=== PATIENT | female | born 1990 | race Caucasian/White ===

== ENCOUNTER 2017-05-19 00:03 | Inpatient (IN) | payer MEDICAID ==
[2017-05-19] MEDS ORDERED: LIDOCAINE HCL 50 ML VIAL PERI PRN (00:11)
[2017-05-19] MEDS ORDERED: OXYTOCIN/DEXTROSE 5%-WATER 30 UNITS/500 ML BAG IV ONE ×2 (00:11→14:32)
[2017-05-19] MEDS ORDERED: RINGER'S SOLUTION,LACTATED 1,000 ML IV ONE (00:11)
[2017-05-19] MEDS ORDERED: ONDANSETRON HCL/PF 2 MG/ML VIAL IV PRN ×2 (00:11→09:43)
[2017-05-19] MEDS ORDERED: DEXTROSE 5%-LACTATED RINGERS 1,000 ML IV PRN (00:11)
[2017-05-19 01:03] LABS: Cocaine Ur Negative (NEGATIVE); Urine Barbiturate Negative (NEGATIVE); Urine Benzodiazepines Negative (NEGATIVE); Urine Opiates Negative (NEGATIVE); Urine PCP Negative (NEGATIVE); Urine THC Negative (NEGATIVE)
[2017-05-19] MEDS: MISOPROSTOL 100 MCG TABLET VG PRN ×2 (02:27→06:31)
--- NOTE | 2017-05-19 09:15 | PN ---
Progess Note - Interim Narrative: 05/19/17 09:14 Patient feeling some of her contractions Vital signs stable. Status post 2 doses of Cytotec. Last dose at 6:30 this morning FHT:150 baseline, reassuring Contractions q 2-3 min Cervix: 3/50/-2, AROM-clear Impression: Intrauterine at 39-4/7 weeks social induction of labor Plan: Continue present plan
[2017-05-19] MEDS ORDERED: BUPIVACAINE HCL/0.9 % NACL/PF 250 ML EP PRN (09:43)
[2017-05-19] MEDS ORDERED: NALOXONE HCL 1 MG/1 ML SYRG IV PRN (09:43)
[2017-05-19] MEDS ORDERED: BUPIVACAINE HCL/PF 30 ML VIAL EP SCH (09:45)
--- NOTE | 2017-05-19 10:19 | OR ---
Anesthesia Procedure Note - Anesthesia Procedure Note Date of Service: 05/19/17 Narrative: Vital Signs - Last Taken Temp 36.9 C 05/19/17 09:56 Pulse 90 05/19/17 09:56 Resp 18 05/19/17 09:56 BP 124/64 05/19/17 09:56 Pulse Ox 100 05/19/17 09:56 05/19/17 10:18 ANESTHESIA PROCEDURE NOTE Date of Procedure: 05/19/2017. Time of procedure: 954. Performed by: Charli Randhawa CRNA Investor Relations Director: None. Preprocedure diagnosis: Active labor. Post procedure diagnosis: Same. Procedure: Insertion of labor epidural. Indications: The patient is a 26 -year-old female in active labor requesting labor epidural for pain management. Findings: See below. Details of the procedure: The patient was placed in a sitting position. DuraPrep as well as Betadine swabs X3 was applied to the patient's back. Patient was then draped in a sterile fashion. Lidocaine 1% was infiltrated to the skin and subcutaneous tissues at the level of the L3-4 interspace. The epidural space was identified using a 18-gauge Tuohy needle with loss-of- resistance technique. Epidural catheter was inserted to a depth of 13 centimeters at skin. Negative test dose was elicited using 3 mL of 1.5% preservative-free lidocaine plus epinephrine 1 200,000. The epidural catheter was then taped and secured in place. A loading dose of 8 mL of 0.25% preservative-free bupivacaine was administered to the epidural catheter after negative aspiration for blood and CSF. EBL: Minimal. Fluids: N/A. Specimen: N/A. Post procedure condition: The patient tolerated the procedure well. No complications were noted. Thank you for this consultation. Charli Randhawa CRNA
[2017-05-19] MEDS ORDERED: PENICILLIN G POTASSIUM 5 MILLIONUNT in DEXTROSE 5 % IN WATER 100 ML IV ONE ×2 (13:19)
[2017-05-19] MEDS ORDERED: SENNOSIDES 8.6 MG TABLET PO PRN (14:32)
[2017-05-19] MEDS ORDERED: BENZOCAINE/MENTHOL 81 SPRAY CAN TP PRN (14:32)
[2017-05-19] MEDS ORDERED: GLYCERIN/WITCH HAZEL LEAF 40 APPL BOX TP PRN (14:32)
[2017-05-19] MEDS ORDERED: oxyCODONE HCL/ACETAMINOPHEN 1 TAB TABLET PO PRN ×2 (14:32)
[2017-05-19] MEDS ORDERED: BISACODYL 10 MG SUPP.RECT RC PRN (14:32)
[2017-05-19] MEDS ORDERED: HYDROCORTISONE 30 APPL TUBE TP PRN (14:32)
--- NOTE | 2017-05-19 14:34 | OR ---
Operative Report - Dictated Report Narrative: Spontaneous vaginal delivery of viable male at 1418 on 05/19/2017 with Apgars 8 and 9, weighing 3843 g in REBECCA position.. Cord clamping delayed approximately 1 minute Placenta delivered complete, intact, with three vessel cord Estimated blood loss: less than 50 ml Lacerations: None
[2017-05-19] MEDS: IBUPROFEN 800 MG TABLET PO PRN (19:54)
[2017-05-19] MEDS: DOCUSATE SODIUM 100 MG CAPSULE PO SCH (20:12)
--- NOTE | 2017-05-20 06:58 | PN ---
Subjective - Date and Time Seen Date: 05/20/17 Time: 06:53 Objective - Vitals Vitals: Last Vital Signs Temp 36.7 C 05/19/17 20:30 Pulse 80 05/19/17 20:30 Resp 16 05/19/17 20:30 BP 140/85 05/19/17 20:30 Pulse Ox 97 05/19/17 20:30 Patient denies complaints. Lochia wnl Abdomen - soft, nontender Uterus - firm, at umbilicus - 1 No calf tenderness Impression: day #1 - s/p spontaneous vaginal delivery. Late entry to care. Asthma-stable. Morbid obesity-stable smoker-quit since admission. Plan: Continue routine care. Encourage patient to continue refraining from smoking Cauti Physician Documentation - Urinary Catheter Management Urethral ([place]ris) Date of Insertion: 05/19/17 Time of Insertion: 10:45 Date of Removal: 05/19/17 Time of Removal: 14:10
[2017-05-20] MEDS: IBUPROFEN 800 MG TABLET PO PRN ×2 (10:11→16:09)
[2017-05-20] MEDS: DOCUSATE SODIUM 100 MG CAPSULE PO SCH (10:15)
[2017-05-20 10:47] VITALS: BP 105/67
[2017-05-20] MEDS ORDERED: FLU VACC QS2017-18(6MOS UP)/PF 60 MCG/0.5 ML SYRINGE IM ONE ×2 (14:15→19:03)
== END 2017-05-20 16:20 | disposition home or self-care (01) | DRG 775 ==
LOC: OB 00:03 → MS 20:02
PROVIDERS: ADMIT Obstetrics & Gynecology; ATTEND Obstetrics & Gynecology
PROC: 4A1HXCZ Monitoring of Products of Conception, Cardiac Rate, External Approach (ICD-10-PCS; principal; 2017-05-19)
PROC: 10E0XZZ Delivery of Products of Conception, External Approach (ICD-10-PCS; 2017-05-19)
PROC: 10907ZC Drainage of Amniotic Fluid, Therapeutic from Products of Conception, Via Natural or Artificial Opening (ICD-10-PCS; 2017-05-19)
PROC: 00HU33Z Insertion of Infusion Device into Spinal Canal, Percutaneous Approach (ICD-10-PCS; 2017-05-19)
DX: O99.02 Anemia complicating childbirth (principal); Z68.41 Body mass index [BMI] 40.0-44.9, adult; O99.321 Drug use complicating pregnancy, first trimester; F19.10 Other psychoactive substance abuse, uncomplicated; D50.8 Other iron deficiency anemias; O99.334 Smoking (tobacco) complicating childbirth; O99.214 Obesity complicating childbirth; E66.01 Morbid (severe) obesity due to excess calories; J45.20 Mild intermittent asthma, uncomplicated; F32.9 Major depressive disorder, single episode, unspecified; F41.9 Anxiety disorder, unspecified; Z3A.40 40 weeks gestation of pregnancy; Z37.0 Single live birth; Z23 Encounter for immunization
CPT/HCPCS: 59025; 80307; 90686; G0008